=== PATIENT | male | born 1965 | race Caucasian/White ===

== ENCOUNTER 2017-10-19 00:48 | Emergency (ER) | payer MEDICARE, OTHER ==
[2017-10-19] MEDS ORDERED: Famotidine 20 MG/2 ML SDV IVPUSH ONE (00:53)
[2017-10-19] MEDS ORDERED: Sodium Chloride 0.9% 10 ML Syringe FLUSH PRN (00:53)
[2017-10-19] MEDS ORDERED: Lactated Ringers 1,000 ML IV ONE (00:53)
[2017-10-19] MEDS ORDERED: Ondansetron 4 MG/2 ML SDV IVPUSH ONE (00:53)
[2017-10-19] MEDS ORDERED: Pantoprazole 40 MG Vial IVPUSH ONE (00:53)
--- NOTE | 2017-10-19 00:53 | EDM.PDOC ---
ED HPI GENERAL MEDICAL PROBLEM - General Chief Complaint: General Stated Complaint: fall Time Seen by Provider: 10/19/17 00:50 Source of Information: Reports: Patient, EMS, EMS Notes Reviewed, Family () , Old Records ([facility] chart/EMR) History Limitations: Reports: Intoxication - History of Present Illness INITIAL COMMENTS - FREE TEXT/NARRATIVE: Patient was brought to the emergency room via basic ambulance transfer with patient having a cervical collar but no other treatment in route. Initial history was somewhat unclear as below with mechanism of injury further clarified after further questioning with both the patient and his . The patient denied any pain or discomfort, including neck/back pain, abdominal pain , head pain, loss of consciousness, change in mental status, seizure activity, urine/stool incontinence, etc. he does admit to drinking 3 mixed drinks earlier this evening. Otherwise mechanism of injury as per assessment as below. The patient denies any chest pain/pressure, heart flutter, dizziness, orthostasis, orthopnea, diaphoresis, paresthesias, recent decreased exercise tolerance, or any other anginal-type symptoms. No recent history of abdominal pain, heartburn , nausea, diarrhea, melena, gross hematochezia, or any food intolerance, including fatty foods, etc.. The patient also denies any recent fever, cough, wheezing, dyspnea, etc.. No history of recent headaches, visual changes, diplopia, change in mental status, or other change in neurological status. Onset: Unknown/Unsure Onset Date: 10/18/17 Onset Time: 22:00 Duration: Other (No pain) Location: Reports: Head (Injury without pain) Improves with: Reports: None Worsens with: Reports: None Associated Symptoms: Reports: Weakness (Stable chronic). 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 - Related Data Allergies Allergy/AdvReac Type Severity Reaction Status Date / Time epinephrine Allergy Clammy and Verified 10/19/17 02:09 Diaphoresis nitrofurantoin Allergy Rash Verified 10/19/17 02:09 [From Macrobid] nitrofurantoin Allergy Rash Verified 10/19/17 02:09 macrocrystalline [From Macrobid] Sulfa (Sulfonamide Allergy Rash Verified 10/19/17 02:09 Antibiotics) lidocaine with Epi Allergy severe Uncoded 10/19/17 02:09 tachycardia Home Meds: Home Meds Lidocaine/Prilocaine [EMLA Crm] 1 applic TOP ASDIRECTED 02/19/15 [History] Nutritional Supplement [Osmolite 1.2 Nader] 7 can GTUBE BEDTIME 01/03/16 [History] Levothyroxine [Synthroid] 25 mcg PO DAILY 03/20/16 [History] Metoprolol Tartrate 25 mg PO BID 10/19/17 [History] Pantoprazole [ProTONIX] 40 mg PO DAILY 10/19/17 [History] guaiFENesin [Guaifenesin] 200 mg PO DAILY 10/19/17 [History] levETIRAcetam [Levetiracetam ER] 250 mg PO DAILY 10/19/17 [History] levETIRAcetam [Levetiracetam ER] 500 mg PO BEDTIME 10/19/17 [History] Past Medical History HEENT History: Reports: Hard of Hearing, Other (See Below) Other HEENT History: bilateral hearing aid therapy Cardiovascular History: Reports: Arrhythmia, Blood Clots/VTE/DVT, High Cholesterol, Syncope, Other (See Below) Other Cardiovascular History: postoperative right thigh DVT after esophageal surgery as below. Recurrent syncopal episodes versus secondary to partial complex seizure disorder since October 2012 Respiratory History: Reports: Bronchitis, Recurrent, COPD, Intubation, Previous , Other (See Below). Denies: Intubation, Difficult, PE, Sleep Apnea Other Respiratory History: COPD by chest x-ray with no current medical therapy. Patient states previous history of possible sleep apnea however negative sleep study as below Gastrointestinal History: Reports: Chronic Constipation, Gastritis, GERD, Other (See Below) Other Gastrointestinal History: History of esophageal cancer requiring surgery as below with current additional supplemental PEG feeding therapy; diaphragmatic hernia Genitourinary History: Reports: Urinary Incontinence Musculoskeletal History: Reports: Back Pain, Chronic, Osteoarthritis. Denies: Fracture Neurological History: Reports: Headaches, Chronic, Seizure. Denies: CVA, Head Trauma, TIA Other Neuro History: Partial complex seizure disorder since October 2012; Occassional headaches Psychiatric History: Reports: Anxiety, Depression Endocrine/Metabolic History: Reports: Hypothyroidism, Other (See Below). Denies : Diabetes, Type I, Diabetes, Type II Other Endocrine/Metabolic History: cachexia Hematologic History: Reports: Anemia, Iron Deficiency Immunologic History: Reports: Immunosuppression, Other (See Below). Denies: AIDS, HIV, SLE Other Immunologic History: cachexia Oncologic (Cancer) History: Reports: Esophageal, Other (See Below) Other Oncologic History: Esophageal cancer diagnosed in the [place] [facility] [place] in November 2004 with previous surgery as below and additional chemotherapy and radiation therapy Dermatologic History: Reports: None. Denies: Eczema, Psoriasis - Infectious Disease History Infectious Disease History: Reports: Chicken Pox. Denies: C-Difficile, MRSA - Past Surgical History Head Surgeries/Procedures: Reports: None HEENT Surgical History: Reports: Oral Surgery, Other (See Below) Other HEENT Surgeries/Procedures: Complete teeth extraction Cardiovascular Surgical History: Reports: Vascular Surgery, Other (See Below) Other Cardiovascular Surgeries/Procedures: Right-sided Port-A-Cath on 12/30/14; possible loop recorder placement Respiratory Surgical History: Reports: Other (See Below) Other Respiratory Surgeries/Procedures: Possible right lower lobe lobectomy GI Surgical History: Reports: Colonoscopy, EGD, Other (See Below) Other GI Surgeries/Procedures: Last colonoscopy at the [facility] in December 2014 with concomitant EGD. PEG tube placement on 12/25/14. Distal esophagectomy in June 2015 with previous Humberto fundoplication on 12/03/13 Musculoskeletal Surgical History: Reports: Shoulder Surgery, Other (See Below) Other Musculoskeletal Surgeries/Procedures:: Right rotator cuff repair on - Past Imaging History Past Imaging History: Reports: Angiography (Heart catheterization in 2012), Cardiac Echo (2012), CAT Scan (Last CT scan of the head on 01/03/16 with previous evaluations on 09/05/15 [address] 01/19/14. CT of the abdomen and pelvis at the [facility] [place] in November 2014.), EEG (2012), MRI (MRI of the brain in 2012), PET (PET scan at [facility] in [place] in December 2014), Sleep Study (Negative inpatient sleep study on 05/26/13 with a repeat evaluation in January 2015), Ultrasound (Abdominal ultrasound at the [facility] [place] in December 2014), Other (See Below) (Tilt table evaluation in 2012) Social & Family History - Tobacco Use Smoking Status *Q: Current Every Day Smoker Years of Tobacco use: 31 Packs/Tins Daily: 0.5 (Smoked cigarettes from age 16 until October 2013 with subsequent cigar use since April 2016) Used Tobacco, but Quit: No Smoking Cessation Information Provided To Patient: Yes Second Hand Smoke Exposure: No Second Hand Smoke Education Provided: No - Alcohol Use Alcohol Use History: Yes Days Per Week of Alcohol Use: 2 (No previous DWIs, problems with alcohol abuse, etc.) Number of Drinks Per Day: 3 (Usually mixed drinks) Total Drinks Per Week: 6 Date of Last Drink: 10/18/17 Alcohol Use in Last Twelve Months: Yes - Recreational Drug Use Recreational Drug Use: No Drug Use in Last 12 Months: No Recreational Drug Type: Denies: Amphetamines (Speed), Cocaine, Heroin, Inhalants (Glues, Solvents, Aerosols), LSD (Acid), Marijuana/Hashish, Methamphetamine, Morphine - Living Situation & Occupation Living situation: Reports: (Second , 3 stepchildren) Occupation: Disabled (Secondary to seizures since November 2012 with 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 ED EXAM, GENERAL - Physical Exam Exam: See Below Exam Limited By: No Limitations General Appearance: Alert, WD/WN, No Apparent Distress Eye Exam: Bilateral Eye: EOMI, Normal Fundi, Normal Inspection (No nystagmus), PERRL Ears: Normal External Exam, Normal Canal, Hearing Grossly Normal, Normal TMs Nose: Normal Inspection, Normal Mucosa, No Blood Throat/Mouth: Normal Lips, Normal Gums, Normal Oropharynx, Normal Voice, No Airway Compromise. No: Normal Teeth (Complete absent dentition with no dentures ), Dysphagia, Perioral Cyanosis Head: Normocephalic, Other (23 centimeter in diameter area of mild swelling with no crepitation, deformity, or significant localized tenderness in the superior mid occipital region). No: Facial Swelling, Facial Tenderness, Sinus Tenderness Neck: Normal Inspection, Supple, Non-Tender, Full Range of Motion. No: Lymphadenopathy (L), Lymphadenopathy (R), Thyromegaly Respiratory/Chest: No Respiratory Distress, Lungs Clear, Normal Breath Sounds, No Accessory Muscle Use, Chest Non-Tender, Other (Port-A-Cath in right upper anterior chest region). No: Pleural Rub, Retractions Cardiovascular: Normal Peripheral Pulses, Regular Rate, Rhythm, No Edema, No Gallop, No JVD, No Murmur, No Rub. No: Gallop/S3, Gallop/S4, Friction Rub Peripheral Pulses: 2+: Radial (L), Radial (R), Dorsalis Pedis (L), Dorsalis Pedis (R) GI/Abdominal: Normal Bowel Sounds, Soft, Non-Tender, No Organomegaly, No Distention, No Abnormal Bruit, No Mass, Pelvis Stable, Other (PEG tube in left mid lateral abdominal region). No: Guarding (Male) Exam: Deferred Rectal (Males) Exam: Deferred Back Exam: Normal Inspection, Full Range of Motion. No: CVA Tenderness (L), CVA Tenderness (R), Muscle Spasm Extremities: Normal Inspection, Normal Range of Motion, Non-Tender, No Pedal Edema, Normal Capillary Refill. No: Angel's Sign Neurological: Alert, Oriented (Despite mild intoxication), CN II-XII Intact, Normal Cognition, Normal Gait, Normal Reflexes (Negative Babinski's, finger to nose, and pronator rotation tests. No evidence of facial paresis, tongue deviation, orthostasis, etc.. Excellent reverse thought processes.), No Motor/ Sensory Deficits Psychiatric: Normal Affect, Normal Mood Skin Exam: Warm, Dry, Intact, Normal Color, No Rash. No: Diaphoretic, Ecchymosis, Wound/Incision Lymphatic: No Adenopathy Course - Vital Signs Last Recorded V/S: Last Vital Signs Temp 36.7 C 10/19/17 02:20 Pulse 74 10/19/17 02:20 Resp 12 10/19/17 02:20 BP 108/78 10/19/17 02:20 Pulse Ox 100 10/19/17 02:20 Vital Signs - 24 hr 10/19/17 10/19/17 10/19/17 00:48 01:00 02:20 Temperature [ 37.1 C 36.7 C Temporal] Pulse, 72 66 74 Peripheral [ Right Pulse Oximetry] Respiratory 12 12 12 Rate Blood Pressure 110/75 108/78 [Left Upper Arm ] Blood Pressure 113/70 [Right Upper Arm] O2 Sat by Pulse 100 100 100 Oximetry - Orders/Labs/Meds Orders: Active Orders 24 hr Category Date Time Status Peripheral IV Care [RC] . DIRECTED Care 10/19/17 00:54 Active Nothing Per Oral Diet [DIET] Diet 10/19/17 Breakfast Active Abdomen Series w Chest 1V [CR] Stat Exams 10/19/17 00:54 Taken CULTURE URINE [RM] Stat Lab 10/19/17 00:54 Uncollected DRUG SCREEN, URINE [URCHEM] Stat Lab 10/19/17 00:55 Uncollected H PYLORI STOOL ANTIGEN [MREF] Urgent Lab 10/19/17 00:54 Uncollected UA W/MICROSCOPIC [URIN] Urgent Lab 10/19/17 00:54 Uncollected Sodium Chloride 0.9% [Saline Flush] Med 10/19/17 00:53 Active 10 ml FLUSH ASDIRECTED PRN Obtain Past Medical Record [OM.PC] Urgent Oth 10/19/17 00:54 Active Peripheral IV Insertion Adult [OM.PC] Stat Oth 10/19/17 00:54 Ordered Resuscitation Status Stat Resus Stat 10/19/17 00:53 Ordered Medication Orders Sodium Chloride (Saline Flush) 10 ml FLUSH ASDIRECTED PRN PRN Reason: Keep Vein Open Last Admin: 10/19/17 02:40 Dose: 10 ml Labs: Laboratory Tests 10/19/17 10/19/17 10/19/17 Range/Units 00:54 00:54 00:54 WBC 6.1 (4.0-10.2) K/uL RBC 4.77 (4.33-5.41) M/uL Hgb 15.5 (13.1-16.8) g/dL Hct 45.1 (39.0-49.0) % MCV 94.5 (84.0-98.0) fL MCH 32.5 (28.2-33.3) pg MCHC 34.4 (31.7-36.0) g/dL RDW 13.1 (11.2-14.1) % Plt Count 223 (150-350) K/uL Neut % (Auto) 66.7 (45.0-80.0) % Lymph % (Auto) 24.0 (10.0-50.0) % Ward % (Auto) 7.5 (2.0-14.0) % Eos % (Auto) 1.5 (0.0-5.0) % Baso % (Auto) 0.3 (0.0-2.0) % Neut # (Auto) 4.09 (1.40-7.00) K/uL Lymph # (Auto) 1.47 (0.50-3.50) K/uL Ward # (Auto) 0.46 (0.00-1.00) K/uL Eos # (Auto) 0.09 (0.00-0.50) K/uL Baso # (Auto) 0.02 (0.00-0.20) K/uL PT 11.9 H (9.8-11.7) SEC INR 1.1 APTT 25.1 (22.1-29.8) SEC Sodium (136-145) mmol/L Potassium (3.5-5.1) mmol/L Chloride (98-107) mmol/L Carbon Dioxide (21.0-32.0) mmol/L BUN (7-18) mg/dL Creatinine (0.51-1.17) mg/dL Est Cr Clr Drug Dosing Estimated GFR (MDRD) mL/min Glucose (74-106) mg/dL Lactic Acid (0.4-2.0) mmol/L Uric Acid (2.6-7.2) mg/dL Calcium (8.5-10.1) mg/dL Magnesium (1.8-2.4) mg/dL Total Bilirubin (0.2-1.0) mg/dL AST (15-37) U/L ALT (12-78) U/L Alkaline Phosphatase (46-116) IU/L Total Protein (6.4-8.2) g/dL Albumin (3.4-5.0) g/dL Amylase 34 (25-115) U/L Lipase (73-393) U/L TSH, Ultra Sensitive (0.358-3.740) mIU/mL Ethyl Alcohol (0.000-0.080) g/dL 10/19/17 10/19/17 Range/Units 00:54 00:54 WBC (4.0-10.2) K/uL RBC (4.33-5.41) M/uL Hgb (13.1-16.8) g/dL Hct (39.0-49.0) % MCV (84.0-98.0) fL MCH (28.2-33.3) pg MCHC (31.7-36.0) g/dL RDW (11.2-14.1) % Plt Count (150-350) K/uL Neut % (Auto) (45.0-80.0) % Lymph % (Auto) (10.0-50.0) % Ward % (Auto) (2.0-14.0) % Eos % (Auto) (0.0-5.0) % Baso % (Auto) (0.0-2.0) % Neut # (Auto) (1.40-7.00) K/uL Lymph # (Auto) (0.50-3.50) K/uL Ward # (Auto) (0.00-1.00) K/uL Eos # (Auto) (0.00-0.50) K/uL Baso # (Auto) (0.00-0.20) K/uL PT (9.8-11.7) SEC INR APTT (22.1-29.8) SEC Sodium 142 (136-145) mmol/L Potassium 3.7 (3.5-5.1) mmol/L Chloride 104 (98-107) mmol/L Carbon Dioxide 28.7 (21.0-32.0) mmol/L BUN 13 (7-18) mg/dL Creatinine 0.73 (0.51-1.17) mg/dL Est Cr Clr Drug Dosing TNP Estimated GFR (MDRD) > 60 mL/min Glucose 83 (74-106) mg/dL Lactic Acid 2.1 H (0.4-2.0) mmol/L Uric Acid 4.8 (2.6-7.2) mg/dL Calcium 9.2 (8.5-10.1) mg/dL Magnesium 2.0 (1.8-2.4) mg/dL Total Bilirubin 0.3 (0.2-1.0) mg/dL AST 16 (15-37) U/L ALT 23 (12-78) U/L Alkaline Phosphatase 73 (46-116) IU/L Total Protein 6.8 (6.4-8.2) g/dL Albumin 3.8 (3.4-5.0) g/dL Amylase (25-115) U/L Lipase 85 (73-393) U/L TSH, Ultra Sensitive 1.048 (0.358-3.740) mIU/mL Ethyl Alcohol 0.117 H (0.000-0.080) g/dL Meds: Medications Generic Name Dose Route Start Last Admin Trade Name Freq PRN Reason Stop Dose Admin Sodium Chloride 10 ml 10/19/17 00:53 10/19/17 02:40 Saline Flush FLUSH 10 ml ASDIRECTED PRN Administration Keep Vein Open Discontinued Medications Generic Name Dose Route Start Last Admin Trade Name Freq PRN Reason Stop Dose Admin Famotidine 40 mg 10/19/17 00:53 10/19/17 01:54 Pepcid IVPUSH 10/19/17 00:54 40 mg ONETIME ONE Administration Heparin Sodium (Porcine) 500 units 10/19/17 02:37 10/19/17 02:40 Heparin Lock Flush 100 Units/Ml FLUSH 10/19/17 02:38 500 units ONETIME ONE Administration Lactated Ringer's 1,000 mls @ 999 mls/hr 10/19/17 00:53 10/19/17 02:49 Ringers, Lactated IV 10/19/17 01:53 Not Given .BOLUS ONE Ondansetron HCl 4 mg 10/19/17 00:53 10/19/17 01:54 Zofran IVPUSH 10/19/17 00:54 4 mg ONETIME ONE Administration Pantoprazole Sodium 40 mg 10/19/17 00:53 10/19/17 01:54 Protonix Iv IVPUSH 10/19/17 00:54 40 mg ONETIME ONE Administration - Radiology Interpretation Free Text/Narrative:: Acute abdominal x-ray showed evidence of moderate to severe COPD changes with no significant pulmonary infiltrates or cardiomegaly, or CHF. Right lower lobe atelectasis versus previous lobectomy with possible loop recorder noted. No free air, fluid levels, ileus, or obstruction. Moderate nonspecific increased bowel gaseous pattern was present with surgical clips noted in the epigastric region consistent with previous surgeries Departure - Departure Time of Disposition: 02:55 Disposition: Home, Self-Care 01 Condition: Fair Clinical Impression: Seizure disorder, Peptic reflux disease, Cachexia, Lactic acid blood increased , Tobacco abuse counseling Contusion Qualifiers: Encounter type: initial encounter Contusion area: head Contusion of head detail : scalp Qualified Code(s): S00.03XA - Contusion of scalp, initial encounter Esophageal cancer Qualifiers: Malignant neoplasm of esophagus location: lower third Qualified Code(s): C15.5 - Malignant neoplasm of lower third of esophagus COPD (chronic obstructive pulmonary disease) Qualifiers: COPD type: emphysema Emphysema type: panlobular Qualified Code(s): J43.1 - Panlobular emphysema Osteoarthritis Qualifiers: Osteoarthritis location: multiple joints Osteoarthritis type: primary Qualified Code(s): M15.0 - Primary generalized (osteo)arthritis Alcohol intoxication Qualifiers: Complication of substance-induced condition: uncomplicated Qualified Code(s): F10.920 - Alcohol use, unspecified with intoxication, uncomplicated - Discharge Information Instructions: Head Injury, Adult, [id number] Forms: ED Department Discharge Additional Instructions: 1. Followup with your regular provider in 7 days as directed to evaluate current nutritional status, etc. 2. Contact your neurologist and/or regular provider tomorrow for further instructions concerning your recent increased seizure activity 3. Tylenol 650 mg by mouth every 4 hours when necessary as directed. 4. Head precautions as directed-see form. 5. BenGay or equivalent, heating pad, and/or ice packs as directed. 6. Discontinue all alcohol use PRAVIN as discussed 7. Continue strict fall precautions, including strict walker use 8. Stop all tobacco use PRAVIN as directed/per provided information and consider contacting Quit [facility]ne, etc.. - Problem List & Annotations (1) Contusion SNOMED Code(s): 535910196 Code(s): T14.8XXA - OTHER INJURY OF UNSPECIFIED BODY REGION, INITIAL ENCOUNTER Status: Acute Priority: High Onset Date: 10/18/17 Annotation/ Comment:: Mechanism of injury initially very unclear secondary to conflict in history both from the EMT and the patient on his arrival. Mechanism of injury was later clarified with more detailed questioning both from the patient and his , who did arrive later. A trauma code was previously immediately considered in this patient secondary to the possible mechanism of injury, however based on the clinical presentation of the patient, previous history, etc. this provider did not feel that a trauma code would affect the patient's level of care and was not warranted. The patient apparently tripped over his dog at the top of his basement stairs and slid down about 10 steps hitting his head on one of the stairs and landing on the concrete. He then subsequently climbed back up the stairs on his own and texted his , who arranged for the patient to come to the hospital. No history of seizure activity, postictal sedation, stool/urinary incontinence, loss of consciousness, or change in mental status other than his intoxication as below. He had 3 mixed drinks earlier this evening. He denies any neck/back pain, abdominal pain, neurological deficits or other injuries or complaints. Head precautions provided to the patient and his . Strict fall precautions including walker use were also strongly encouraged. The patient's denies any safety issues or concerns at home at this time and does feel able to properly take care of the patient at this time. Qualifiers: Encounter type: initial encounter Contusion area: head Contusion of head detail: scalp Qualified Code(s): S00.03XA - Contusion of scalp, initial encounter (2) Seizure disorder SNOMED Code(s): 539836114 Code(s): G40.909 - EPILEPSY, UNSP, NOT INTRACTABLE, WITHOUT STATUS EPILEPTICUS Status: Acute Priority: Medium Annotation/Comment:: Patient was initially uncertain which seizure medications he was taking, which was clarified once his arrived to the emergency room. Note recently increased seizure frequency with apparently 3 recent seizures over the weekend, i.e., 4 days ago. His neurologist is to be contacted PRAVIN as per discharge instructions. Consider repeat Keppra level by his regular providers. No evidence of seizure this evening as above (3) Alcohol intoxication SNOMED Code(s): 81451167 Code(s): F10.929 - ALCOHOL USE, UNSPECIFIED WITH INTOXICATION, UNSPECIFIED Status: Acute Priority: High Onset Date: 10/19/17 Annotation/Comment:: Patient relatively alert despite intoxication. Patient is works in [employer] counseled on the importance of stopping all alcohol use PRAVIN especially in light of his previous history of esophageal cancer. Qualifiers: Complication of substance-induced condition: uncomplicated Qualified Code(s ): F10.920 - Alcohol use, unspecified with intoxication, uncomplicated (4) COPD (chronic obstructive pulmonary disease) SNOMED Code(s): 44398667 Code(s): J44.9 - CHRONIC OBSTRUCTIVE PULMONARY DISEASE, UNSPECIFIED Status : Chronic Priority: Medium Annotation/Comment:: Moderate to severe COPD by chest x-ray with patient was again starting to use cigars as above. Tobacco cessation strongly encouraged secondary to his history of esophageal cancer with tobacco cessation information provided Qualifiers: COPD type: emphysema Emphysema type: panlobular Qualified Code(s): J43.1 - Panlobular emphysema (5) Cachexia SNOMED Code(s): 717961403 Code(s): R64 - CACHEXIA Status: Chronic Priority: Medium Annotation/ Comment:: Significant cachexia with history of esophageal cancer as above. Note supplemental PEG tube feedings. Nutritional status to be watched closely by his regular provider with strict calorie counts encouraged (6) Esophageal cancer SNOMED Code(s): 477776534 Code(s): C15.9 - MALIGNANT NEOPLASM OF ESOPHAGUS, UNSPECIFIED Status: Chronic Priority: Medium Annotation/Comment:: The patient has completed his chemotherapy and radiation therapy for his esophageal cancer with previous surgery as above. Note significant cachexia as above however no recent abdominal complaints, etc. Continue to observe his weight, etc. closely by his regular providers Qualifiers: Malignant neoplasm of esophagus location: lower third Qualified Code(s): C15.5 - Malignant neoplasm of lower third of esophagus (7) Lactic acid blood increased SNOMED Code(s): 3927687 Code(s): R79.89 - OTHER SPECIFIED ABNORMAL FINDINGS OF BLOOD CHEMISTRY Status: Acute Priority: Medium Onset Date: 10/19/17 Annotation/Comment:: Only mildly elevated lactic acid level at this time not clinically significant. No fever or sign sepsis, etc. (8) Osteoarthritis SNOMED Code(s): 931208204 Code(s): M19.90 - UNSPECIFIED OSTEOARTHRITIS, UNSPECIFIED SITE Status: Chronic Priority: Medium Annotation/Comment:: Stable by history with no acute arthritic complaints despite fall earlier this evening Qualifiers: Osteoarthritis location: multiple joints Osteoarthritis type: primary Qualified Code(s): M15.0 - Primary generalized (osteo)arthritis (9) Peptic reflux disease SNOMED Code(s): 33733099 Code(s): K21.9 - GASTRO-ESOPHAGEAL REFLUX DISEASE WITHOUT ESOPHAGITIS Status: Acute Priority: Medium Annotation/Comment:: Stable by history with high-dose IV Pepcid and IV Protonix given as GI prophylaxis - Problem List Review Problem List Initiated/Reviewed/Updated: Yes - My Orders Last 24 Hours: My Active Orders 10/19/17 00:53 Sodium Chloride 0.9% [Saline Flush] 10 ml FLUSH ASDIRECTED PRN Resuscitation Status Stat 10/19/17 00:54 Peripheral IV Care [RC] . DIRECTED Abdomen Series w Chest 1V [CR] Stat CULTURE URINE [RM] Stat H PYLORI STOOL ANTIGEN [MREF] Urgent UA W/MICROSCOPIC [URIN] Urgent Obtain Past Medical Record [OM.PC] Urgent Peripheral IV Insertion Adult [OM.PC] Stat 10/19/17 00:55 DRUG SCREEN, URINE [URCHEM] Stat 10/19/17 Breakfast Nothing Per Oral Diet [DIET] - Assessment/Plan Last 24 Hours: My Active Orders 10/19/17 00:53 Sodium Chloride 0.9% [Saline Flush] 10 ml FLUSH ASDIRECTED PRN Resuscitation Status Stat 10/19/17 00:54 Peripheral IV Care [RC] . DIRECTED Abdomen Series w Chest 1V [CR] Stat CULTURE URINE [RM] Stat H PYLORI STOOL ANTIGEN [MREF] Urgent UA W/MICROSCOPIC [URIN] Urgent Obtain Past Medical Record [OM.PC] Urgent Peripheral IV Insertion Adult [OM.PC] Stat 10/19/17 00:55 DRUG SCREEN, URINE [URCHEM] Stat 10/19/17 Breakfast Nothing Per Oral Diet [DIET] Assessment:: As above Plan: As above. Extensive precautions were given to the patient and his , who are in agreement with the treatment plan. See Patient Instructions for further treatment and plan.
[2017-10-19 01:38] LABS: CHLORIDE,CL 104 mmol/L (98-107); SODIUM,NA 142 mmol/L (136-145)
[2017-10-19 02:47] VITALS: BP 108/78
== END 2017-10-19 02:55 | disposition home or self-care (01) ==
LOC: LL.ED 00:48
DX: S00.03XA Contusion of scalp, initial encounter (principal); C15.5 Malignant neoplasm of lower third of esophagus; J43.1 Panlobular emphysema; G40.909 Epilepsy, unspecified, not intractable, without status epilepticus; M15.0 Primary generalized (osteo)arthritis; K21.9 Gastro-esophageal reflux disease without esophagitis; R74.0 Nonspecific elevation of levels of transaminase and lactic acid dehydrogenase [LDH]; R64 Cachexia; F17.210 Nicotine dependence, cigarettes, uncomplicated; F10.120 Alcohol abuse with intoxication, uncomplicated; Y90.0 Blood alcohol level of less than 20 mg/100 ml; Z71.6 Tobacco abuse counseling; W19.XXXA Unspecified fall, initial encounter
CPT/HCPCS: 36415; 74022; 80053; 82150; 83605; 83690; 83735; 84443; 84550; 85025; 85610; 85730; 96374; 96375; 99285; C9113; G0480; J1642; J2405; J7050; 99284; S0028

== ENCOUNTER 2024-09-02 21:08 | Emergency (ER) | payer OTHER, MEDICARE ==
[2024-09-02 21:42] VITALS: BP 134/93; PULSE 65
[2024-09-02] MEDS: Acetaminophen 500 MG Tab PO ONE (21:46)
== END 2024-09-02 22:19 ==
LOC: LL.ED 21:08
DX: R51.9 Headache, unspecified (principal); E78.00 Pure hypercholesterolemia, unspecified; J44.9 Chronic obstructive pulmonary disease, unspecified; E03.9 Hypothyroidism, unspecified; Z79.890 Hormone replacement therapy; Z79.82 Long term (current) use of aspirin; Z79.899 Other long term (current) drug therapy; Z88.2 Allergy status to sulfonamides; Z88.4 Allergy status to anesthetic agent; Z88.8 Allergy status to other drugs, medicaments and biological substances
CPT/HCPCS: 99283; 99284; A9270-GY

== ENCOUNTER 2024-11-08 10:00 | Emergency (ER) | payer OTHER, MEDICARE ==
[2024-11-08] MEDS ORDERED: Sodium Chloride 0.9% 10 ML Syringe FLUSH PRN (10:30)
[2024-11-08 10:35] LABS: BASOPHILS ABSOLUTE AUTO 0.01 K/uL (0.00-0.20); BASOPHILS PERCENT AUTO 0.1 % (0.0-2.0); EOSINOPHILS ABSOLUTE AUTO 0.07 K/uL (0.00-0.50); EOSINOPHILS PERCENT AUTO 0.8 % (0.0-5.0); HEMATOCRIT 41.3 % (39.0-49.0); HEMOGLOBIN 13.8 g/dL (13.1-16.8); IMMATURE GRAN ABSOLUTE AUTO 0.01 10^3/uL (0.00-0.04); IMMATURE GRAN PERCENT AUTO 0.1 % (0.0-0.4); LYMPHOCYTES ABSOLUTE AUTO 1.13 K/uL (0.50-3.50); LYMPHOCYTES PERCENT AUTO 12.7 % (10.0-50.0); MEAN CORPUSCULAR HEMOGLOBIN 30.2 pg (28.2-33.3); MEAN CORPUSCULAR HGB CONC 33.4 g/dL (31.7-36.0); MEAN CORPUSCULAR VOLUME 90.4 fL (84.0-98.0); MONOCYTES ABSOLUTE AUTO 0.73 K/uL (0.00-1.00); MONOCYTES PERCENT AUTO 8.2 % (2.0-14.0); NEUTROPHILS ABSOLUTE AUTO 6.97 K/uL (1.40-7.00); NEUTROPHILS PERCENT AUTO 78.1 % (45.0-80.0); PLATELET COUNT,PLT 251 K/uL (150-350); RED BLOOD CELL COUNT 4.57 M/uL (4.33-5.41); RED CELL DISTRIBUTION WIDTH 14.4 % (11.2-14.1); WHITE BLOOD CELL COUNT,WBC 8.9 K/uL (4.0-10.2)
[2024-11-08] MEDS: Norflurane/HFc 245FA Medium Stream Spray 103.5 ML Can TOP ONE (10:35)
[2024-11-08] MEDS: Norflurane/HFc 245FA Medium Stream Spray 103.5 ML Can ONE (10:35)
[2024-11-08] MEDS: Lactated Ringers 1,000 ML IV ONE (10:36)
[2024-11-08 10:46] LABS: INR 1.2 (0.9-1.1); PROTHROMBIN TIME 11.8 SEC (9.0-11.1)
[2024-11-08 10:48] LABS: ALANINE AMINOTRANSFERASE,ALT 12 U/L (12-78); ALBUMIN 3.4 g/dL (3.4-5.0); ALKALINE PHOSPHATASE 86 IU/L (46-116); ASPARTATE AMNIOTRANSFERASE,AST 14 U/L (15-37); BILIRUBIN TOTAL 0.8 mg/dL (0.2-1.0); BLOOD UREA NITROGEN,BUN 39 mg/dL (7-18); CALCIUM 8.7 mg/dL (8.5-10.1); CHLORIDE,CL 102 mmol/L (98-107); CREATININE 0.89 mg/dL (0.51-1.17); GLUCOSE RANDOM 148 mg/dL (70-99); MAGNESIUM 1.9 mg/dL (1.8-2.4); POTASSIUM,K 4.1 mmol/L (3.5-5.1); PROTEIN TOTAL,TP 6.4 g/dL (6.4-8.2); SODIUM,NA 140 mmol/L (136-145)
[2024-11-08 10:49] LABS: ESTIMATED GFR 100 mL/min (>=60)
[2024-11-08 11:08] VITALS: BP 105/77; PULSE 83
== END 2024-11-08 11:50 | disposition home or self-care (01) ==
LOC: LL.ED 10:00
DX: E86.0 Dehydration (principal); E63.9 Nutritional deficiency, unspecified; R53.1 Weakness; E78.00 Pure hypercholesterolemia, unspecified; J44.9 Chronic obstructive pulmonary disease, unspecified; M19.90 Unspecified osteoarthritis, unspecified site; E03.9 Hypothyroidism, unspecified; Z88.2 Allergy status to sulfonamides; Z88.4 Allergy status to anesthetic agent; Z88.8 Allergy status to other drugs, medicaments and biological substances; Z79.51 Long term (current) use of inhaled steroids; Z79.82 Long term (current) use of aspirin; Z79.890 Hormone replacement therapy; Z79.899 Other long term (current) drug therapy
CPT/HCPCS: 36415; 80053; 83735; 85025; 85610; 96360; 99284; 99284-25; J7120

== ENCOUNTER 2025-06-20 14:17 | Emergency (ER) | payer OTHER, MEDICARE ==
[2025-06-20] MEDS ORDERED: Sodium Chloride 0.9% 10 ML Syringe FLUSH PRN (14:39)
[2025-06-20 14:54] LABS: BASOPHILS ABSOLUTE AUTO 0.02 K/uL (0.00-0.20); BASOPHILS PERCENT AUTO 0.3 % (0.0-2.0); EOSINOPHILS ABSOLUTE AUTO 0.06 K/uL (0.00-0.50); EOSINOPHILS PERCENT AUTO 0.9 % (0.0-5.0); IMMATURE GRAN ABSOLUTE AUTO 0.01 10^3/uL (0.00-0.04); IMMATURE GRAN PERCENT AUTO 0.1 % (0.0-0.4); LYMPHOCYTES ABSOLUTE AUTO 1.04 K/uL (0.50-3.50); LYMPHOCYTES PERCENT AUTO 14.9 % (10.0-50.0); MONOCYTES ABSOLUTE AUTO 0.49 K/uL (0.00-1.00); MONOCYTES PERCENT AUTO 7.0 % (2.0-14.0); NEUTROPHILS ABSOLUTE AUTO 5.38 K/uL (1.40-7.00); NEUTROPHILS PERCENT AUTO 76.8 % (45.0-80.0); PLATELET COUNT,PLT 324 K/uL (150-350); RED BLOOD CELL COUNT 4.76 M/uL (4.33-5.41); RED CELL DISTRIBUTION WIDTH 15.7 % (11.2-14.1); WHITE BLOOD CELL COUNT,WBC 7.0 K/uL (4.0-10.2)
[2025-06-20 15:21] LABS: ALANINE AMINOTRANSFERASE,ALT 15.0 U/L (12-78); ASPARTATE AMNIOTRANSFERASE,AST 12.0 U/L (15-37); BILIRUBIN TOTAL 0.7 mg/dL (0.2-1.0); BLOOD UREA NITROGEN,BUN 23.0 mg/dL (7-18); CARBON DIOXIDE,CO2 29.5 mmol/L (21.0-32.0); CHLORIDE,CL 103.0 mmol/L (98-107); CREATININE 0.93 mg/dL (0.51-1.17); EST CRCL DRUG DOSING (CG) 63.88 mL/min; GLUCOSE RANDOM 98.0 mg/dL (70-99); POTASSIUM,K 4.3 mmol/L (3.5-5.1); PROTEIN TOTAL,TP 7.2 g/dL (6.4-8.2); SODIUM,NA 140.0 mmol/L (136-145)
[2025-06-20 15:22] LABS: ESTIMATED GFR 95.0 mL/min (>=60)
[2025-06-20] MEDS: Take Home: Azithromycin 250 MG 5 Day, 6 Tab Pack PO ONE (15:59)
[2025-06-20] MEDS: Take Home: Meclizine HCl 25 MG, 6 Tab Pack PO ONE (15:59)
[2025-06-20 16:30] VITALS: BP 114/68; PULSE 68
== END 2025-06-20 16:11 | disposition home or self-care (01) ==
LOC: LL.ED 14:17
DX: R05.1 Acute cough (principal); E78.00 Pure hypercholesterolemia, unspecified; E03.9 Hypothyroidism, unspecified; J44.9 Chronic obstructive pulmonary disease, unspecified; Z79.890 Hormone replacement therapy; Z79.899 Other long term (current) drug therapy; Z88.2 Allergy status to sulfonamides; Z88.8 Allergy status to other drugs, medicaments and biological substances
CPT/HCPCS: 36415; 71046; 80053; 83605; 83735; 85025; 87426-QW; 96360; 99284; 99284-25; A9270-GY; J7030